=== PATIENT | male | born 1965 | race Caucasian/White ===

== ENCOUNTER 2018-09-03 06:06 | Day surgery (SDC) | payer BC ==
[2018-09-03] MEDS ORDERED: MIDAZOLAM 1 MG/ML 2 ML INJ ×2 (08:10→08:11)
[2018-09-03] MEDS ORDERED: FENTAnyl 50 MCG/ML VIAL (08:10)
== END 2018-09-03 08:41 | disposition home or self-care (01) ==
LOC: GIL 06:06
DX: Z86.010 Personal history of colon polyps (principal); K57.30 Diverticulosis of large intestine without perforation or abscess without bleeding
CPT/HCPCS: 45378

== ENCOUNTER 2018-10-29 09:54 | Day surgery (SDC) | payer BC ==
[2018-10-29] MEDS ORDERED: LIDOCAINE 4% SOLUTION 50 ML BTL (10:47)
[2018-10-29] MEDS ORDERED: MIDAZOLAM 1 MG/ML 2 ML INJ ×2 (12:11)
[2018-10-29] MEDS ORDERED: FENTAnyl 50 MCG/ML VIAL (12:11)
== END 2018-10-29 12:53 | disposition home or self-care (01) ==
LOC: GIL 09:54
DX: K20.8 Other esophagitis (principal); K29.50 Unspecified chronic gastritis without bleeding; K31.9 Disease of stomach and duodenum, unspecified; I10 Essential (primary) hypertension
CPT/HCPCS: 43239; 88305; 88312